=== PATIENT | female | born 1965 | race Caucasian/White ===

== ENCOUNTER 2017-08-29 13:16 | Emergency (ER) | payer OTHER ==
--- NOTE | 2017-08-29 14:22 | Emergency Department Record ---
History of Present Illness - General Chief complaint: Cold Stated complaint: CHEST COLD Time Seen by Provider: 08/29/17 14:12 Source: Patient Mode of Arrival: Ambulatory Limitations: No limitations - History of Present Illness Initial comments: The patient is here due to a chest cold for 2 weeks. She has been on Pen VK for a week but is only minimally better. She is still congested and is coughing up colored sputum. The patient denies any SOB, CP, or fever. MD complaint: Other Onset/Timin -: Week(s) Location: R ear, L ear, Throat Severity: Moderate Severity scale (1-10): 7 Quality: Aching Consistency: Constant Improves with: None Worsens with: None Associated Symptoms: Cough, Pain with swallowing, Sore throat, Other - Related Data Home Medications Medication Instructions Recorded Confirmed Last Taken Atenolol [Atenolol] 100 mg PO DAILY 08/29/17 08/29/17 Unknown Insulin Detemir [Levemir Flextouch] 80 units SQ QAM 08/29/17 08/29/17 Unknown Lisinopril [Lisinopril] 20 mg PO DAILY 08/29/17 08/29/17 Unknown Penicillin V Potassium 500 mg PO BID 08/29/17 08/29/17 Unknown Rosuvastatin Calcium [Crestor] 40 mg PO DAILY 08/29/17 08/29/17 Unknown Previous Rx's Medication Instructions Recorded Azithromycin [Zithromax] 250 mg PO ASDIR #6 tab 08/29/17 Allergies Allergy/AdvReac Type Severity Reaction Status Date / Time No Known Drug Allergies Allergy Verified 08/29/17 13:57 Travel Screening - Travel/Exposure Within Last 30 Days Have you traveled within the last 30 days?: No Review of Systems Constitutional: Reports: Malaise. Denies: Chills, Fever Eyes: Denies: Eye discharge ENT: Reports: Congestion Respiratory: Reports: Cough. Denies: Dyspnea Past Medical History - SOCIAL HISTORY Smoking Status: Current every day smoker Alcohol Use: None Drug Use: None - RESPIRATORY Hx Respiratory Disorders: No - CARDIOVASCULAR Hx Cardio Disorders: Yes Hx Hypertension: Yes Comment:: high cholesterol - NEURO Hx Neuro Disorders: No - GI Hx GI Disorders: No - Hx Genitourinary Disorders: No - ENDOCRINE Hx Endocrine Disorders: Yes Hx Diabetes: Yes - MUSCULOSKELETAL Hx Musculoskeletal Disorders: No - PSYCH Hx Psych Problems: No - HEMATOLOGY/ONCOLOGY Hx Hematology/Oncology Disorders: No Family Medical History Any Significant Family History?: No Physical Exam - General General Appearance: Alert, Oriented x3, Cooperative, No acute distress - Head Head exam: Atraumatic, Normocephalic, Normal inspection - Eye Eye exam: Normal appearance, PERRL - ENT ENT exam: TM's normal bilaterally. negative: Normal exam, Normal orophraynx Throat exam: Tonsillar erythema. negative: Normal inspection, Tonsillomegaly, Tonsillar exudate - Neck Neck exam: Normal inspection, Full ROM. negative: Lymphadenopathy, Meningismus , Tenderness - Respiratory Respiratory exam: Normal lung sounds bilaterally. negative: Respiratory distress - Cardiovascular Cardiovascular Exam: Regular rate, Normal rhythm, Normal heart sounds - GI/Abdominal GI/Abdominal exam: Soft, Normal bowel sounds. negative: Tenderness - Extremities Extremities exam: Normal inspection, Full ROM, Normal capillary refill. negative: Tenderness - Neurological Neurological exam: Alert, Normal gait. negative: Abnormal gait, Motor sensory deficit Course Vital Signs 08/29/17 13:54 Temperature 97.8 F Pulse Rate 84 Respiratory 18 Rate Blood Pressure 155/93 Pulse Ox 96 - Reevaluation(s) Reevaluation #1: I did explain to the patient we will stop the PEN VK and start the Zithromax. She is to see her PCP if not better in 3 days. 08/29/17 14:24 Disposition Disposition: Discharge Clinical Impression: Acute bronchitis Qualifiers: Bronchitis organism: unspecified organism Qualified Code(s): J20.9 - Acute bronchitis, unspecified Disposition: Home, Self-Care Condition: (2) Stable Instructions: Cold Symptoms (ED) Additional Instructions: Please stop the Pen VK and start the Zpak. Please see your doctor if not better in 3 days and return to the ER if worse. Prescriptions: Azithromycin [Zithromax] 250 mg PO ASDIR #6 tab Forms: Patient Portal Access Time of Disposition: 14:22 Quality - Quality Measures Quality Measures: N/A - Blood Pressure Screening View Details: Yes Does Patient Have Any of the Following: Active Dx of HTN Blood Pressure Classification: Hypertensive Reading Systolic Measurement: 155 Diastolic Measurement: 93 Screening for High Blood Pressure: Patient Exclusion, Hx of HTN [[id number]]
== END 2017-08-29 14:32 | disposition home or self-care (01) ==
LOC: ER 13:16
DX: J20.9 Acute bronchitis, unspecified (principal); I10 Essential (primary) hypertension; F17.210 Nicotine dependence, cigarettes, uncomplicated
CPT/HCPCS: 99282

== ENCOUNTER 2018-04-12 09:06 | Day surgery (SDC) | payer OTHER ==
[~2018-04-12 09:06] MED LIST: ACETAMINOPHEN 1,000 MG/100 ML BTL IV ONE
[2018-04-12] MEDS ORDERED: MIDAZOLAM HCL 2MG/2ML VIAL IV ONE (09:07)
[2018-04-12] MEDS ORDERED: BUPIVACAINE 0.25% W/EPI MPF 30ML VIAL IVP ONE (09:07)
[2018-04-12] MEDS ORDERED: LIDOCAINE 2% MDV (20MG/ML) 20ML VIAL IV ONE (09:07)
[2018-04-12] MEDS ORDERED: PROPOFOL 10 MG/ML VIAL IV ONE (09:07)
[2018-04-12] MEDS ORDERED: FENTANYL PF 100MCG/2ML VIAL IV ONE (09:07)
--- NOTE | 2018-04-13 10:00 | Operative Note ---
DATE OF SURGERY: 04/12/2018 Surgeon: Julio Cesar Sánchez DO PREOPERATIVE DIAGNOSIS: Back mass. POSTOPERATIVE DIAGNOSIS: Back mass. OPERATION: Excision of back mass on the left. Indication: The patient is a 52-year-old female who has had a long-standing mass. She came in with pain and enlarging symptoms. We did discuss excision. Risks, benefits, and alternatives were discussed. Risks include bleeding, infection, recurrence. She understood this fully. Thereafter, consent was signed and questions answered. PROCEDURE: The patient was taken to the operating room and placed in a supine position. She was rotated into right lateral position. Her back was prepped and draped in the usual sterile fashion. The area over the mass anesthetized with a total of 10 mL of 0.25% Sensorcaine with epinephrine. A 3 cm incision was made. This was carried down to the capsule of a large lipoma. This was dissected free from surrounding tissue and passed off the field. This did measure 4 x 3 cm down to the subcu. The wound was closed with 3-0 and 4-0 Vicryl. She was taken to the recovery room in satisfactory condition. FINDINGS AT THE TIME OF SURGERY: Low back mass consistent with a lipoma. CC: DO SYBIL Rodriguez
== END 2018-04-12 11:15 | disposition home or self-care (01) ==
LOC: SUR 09:06
PROVIDERS: ATTEND Surgery
DX: D17.1 Benign lipomatous neoplasm of skin and subcutaneous tissue of trunk (principal); I10 Essential (primary) hypertension; E11.9 Type 2 diabetes mellitus without complications; Z79.4 Long term (current) use of insulin; E78.00 Pure hypercholesterolemia, unspecified; E03.9 Hypothyroidism, unspecified
CPT/HCPCS: 11406; 00300; J3010